=== PATIENT | male | born 1985 | race Caucasian/White ===

== ENCOUNTER 2017-10-07 14:41 | Emergency (ER) | payer OTHER ==
[2017-10-07] MEDS ORDERED: GLUCAGON 1 MG/ML VIAL IVP STA (15:07)
--- NOTE | 2017-10-07 15:22 | XR ---
EXAMINATION TYPE: XR chest 2V DATE OF EXAM: 10/07/2017 COMPARISON: NONE HISTORY: Piece of meat stuck in the patient's esophagus. Dysphagia TECHNIQUE: Frontal and lateral views of the chest are obtained. FINDINGS: There is no focal air space opacity, pleural effusion, or pneumothorax seen. The cardiac silhouette size is within normal limits. The osseous structures are intact. A radiopaque foreign luis dy is not identified. IMPRESSION: No acute cardiopulmonary process.
--- NOTE | 2017-10-07 16:04 | ED ---
General Adult HPI - General Chief complaint: ENT Stated complaint: Throat pain Time Seen by Provider: 10/07/17 14:53 Source: patient Mode of arrival: ambulatory Limitations: no limitations - History of Present Illness Initial comments: 32-year-old male patient presents to the emergency department today for evaluation of esophageal food obstruction. Patient states that he was eating pulled pork sandwich around 1 PM when he felt a piece get lodged in his esophagus. He states that he has attempted drinking fluids multiple times to help it pass but he has been unsuccessful. He states whenever he tries to drink he spits the liquid back up. Patient states that this has happened multiple times in the past. Patient states that occasionally he is able to relieve the blockage himself, and one incident he did have endoscopy in the emergency department. He denies any difficulty breathing or chest pain. He states that it does feel that it is lodged in his upper chest. Patient denies any recent rash, fever, chills, abdominal pain, nausea, vomiting, diarrhea, constipation, back pain, numbness, tingling, dizziness, weakness, hematuria, dysuria, urinary urgency, urinary frequency, headache, visual changes, or any other complaints. - Related Data Home Medications Medication Instructions Recorded Confirmed Fluticasone Nasal [place] [Flonase 1 - 2 spr EA NOSTRIL DAILY PRN 10/07/17 Nasal [place]] Allergies Allergy/AdvReac Type Severity Reaction Status Date / Time Sulfa (Sulfonamide Allergy Unknown Verified 10/07/17 15:23 Antibiotics) Review of Systems ROS Statement: Those systems with pertinent positive or pertinent negative responses have been documented in the HPI. ROS Other: All systems not noted in ROS Statement are negative. Past Medical History Past Medical History: No Reported History History of Any Multi-Drug Resistant Organisms: None Reported Past Surgical History: No Surgical Hx Reported Past Psychological History: No Psychological Hx Reported Smoking Status: Never smoker Past Alcohol Use History: Occasional Past Drug Use History: None Reported General Exam Limitations: no limitations General appearance: alert, in no apparent distress, other (This is a well- developed, well-nourished adult male patient in no acute distress. Vital signs upon presentation are temperature 98.3F, pulse 93, respirations 18, blood pressure 148/87, pulse ox 97% on room air.) Eye exam: Present: normal appearance, PERRL, EOMI. Absent: scleral icterus, conjunctival injection, periorbital swelling ENT exam: Present: normal exam, normal oropharynx, mucous membranes moist Neck exam: Present: normal inspection. Absent: tenderness, meningismus, lymphadenopathy Respiratory exam: Present: normal lung sounds bilaterally. Absent: respiratory distress, wheezes, rales, rhonchi, stridor Cardiovascular Exam: Present: regular rate, normal rhythm, normal heart sounds. Absent: systolic murmur, diastolic murmur, rubs, gallop, clicks GI/Abdominal exam: Present: soft, normal bowel sounds. Absent: distended, tenderness, guarding, rebound, rigid Neurological exam: Present: alert, oriented X3, CN II-XII intact Psychiatric exam: Present: normal affect, normal mood Skin exam: Present: warm, dry, intact, normal color. Absent: rash Course Vital Signs 10/07/17 10/07/17 14:43 16:21 Temperature 98.3 F Pulse Rate 93 Respiratory 18 Rate Blood Pressure 148/87 O2 Sat by Pulse 97 98 Oximetry - Reevaluation(s) Reevaluation #1: 10/07/17 16:04 We did attempt a glucagon challenge to pass the food bolus however is unsuccessful. Patient is still spitting up liquids and a repeat attempts to drink. My attending Dr. Borjas has been in to evaluate patient and we will be calling in GI specialist for further evaluation. Medical Decision Making - Medical Decision Making 32-year-old nail patient presented to the emergency department today for evaluation of possible esophageal obstruction due to food bolus. Physical examination was unremarkable. Patient was breathing without difficulty. We did attempt a glucagon challenge to remove the food bolus however was unsuccessful. Patient continued to spit up fluids when with any attempt at drinking. Dr. Woodall did come in and perform endoscopy on the patient. She reported that she removed a large food bolus. She also reported she found an esophageal stricture and esophageal polyp for which she did perform a biopsy. Patient will be discharged home at this time with instructions to follow-up with a GI specialist as soon as possible. Patient does live in [place] and will be following up with a GI specialist in his home town. He is instructed to call for the results of his biopsy in one week. He is instructed to return here immediately for any new, worsening, or concerning symptoms. He is instructed to follow up his primary care physician for further evaluation. He verbalizes understanding and agrees with this plan. - Radiology Data Radiology results: report reviewed, image reviewed Two-view x-ray of the chest shows there is no focal airspace opacity, pleural effusion, or pneumothorax seen. The cardiac silhouette size is within normal limits. The osseous structures are intact. Radiopaque foreign body is not identified. Impression by Dr. Singh shows no acute cardio pulmonary process. Disposition Clinical Impression: Esophageal obstruction due to food impaction, Esophageal stricture Disposition: HOME SELF-CARE Condition: Good Instructions: *Surgery [facility] - (Anesthesia) Endoscopy Discharge Instructions, Esophageal Foreign Body (ED) Additional Instructions: Follow-up with GI specialist for further evaluation. Return here immediately if you develop any new, worsening, or concerning symptoms. Referrals: Danyelle Woodall MD [STAFF PHYSICIAN] - (Follow up in 2 weeks. Call for appointment. ) Time of Disposition: 17:56
[2017-10-07] MEDS ORDERED: LIDOCAINE 2% SYG (PF) 100 MG/5 ML ONE (17:15)
[2017-10-07] MEDS ORDERED: PROPOFOL 10 MG/ML 20 ML VIAL IV ONE (17:15)
[2017-10-07] MEDS ORDERED: SODIUM CHLORIDE 0.9% 1,000 ML IV ONE (17:29)
[2017-10-07 18:25] VITALS: BP 122/73; PULSE 86; RESP 16; TEMP 98.4
--- NOTE | 2017-10-08 10:55 | PCN ---
PROCEDURE NOTE BRIEF HISTORY: Patient is a 32 -year-old pleasant white male came into the emergency room with acute food dysphagia. He was eating a piece of steak this afternoon and could not swallow any further. Came to the emergency room at 4 pm and is scheduled for an emergency upper endoscopy in the ER. PROCEDURE PERFORMED: EGD with foreign body retrieval and biopsy. SEDATION: IV sedation per Anesthesia. DESCRIPTION OF PROCEDURE: After informed consent was obtained from the patient, the procedure was done in the emergency room. IV conscious sedation was administered by anesthesia. Initially the Olympus GF 190 video endoscope was inserted into the mouth and esophagus intubated without difficulty. In the mid esophagus, there was a large piece of meat that was impacted. Using a snare, the piece of meat was retrieved without any difficulty out of the mouth. Following this, the scope was reintubated. The scope was passed and esophagus intubated and was advanced into the stomach and duodenum. The bulb and the second part of the duodenum appeared normal. The scope at this time was withdrawn into the stomach, adequately insufflated with air. Upon careful examination the mucosa of the antrum, body, cardia and fundus appeared normal. The scope was withdrawn into the esophagus. There was a small hiatal herniated noted. The GE junction was located at 38 cm from the incisors. Just distal to the GE junction there was a 1 cm polyp that was biopsied. There was a distal esophageal stricture identified with multiple superficial esophageal rings and erythematous mucosal folds, especially in the mid and distal esophagus suspicious for eosinophilic esophagitis and hence multiple biopsies were done from this area. The proximal cervical esophagus appeared normal. The patient tolerated the procedure well. IMPRESSION: 1. Acute food impaction status post removal as described above. 2. Multiple superficial esophageal rings with thickened folds, and distal esophageal stricture, status post multiple biopsies to rule out the eosinophilic esophagitis. 3. 1 cm GE junction polyp status post biopsy. 4. RECOMMENDATIONS: Findings of this examination were discussed with the patient as well as his family. At this time we will await the biopsy results. He will be discharged home on a soft diet. He was advised to start on Prilosec 20 mg twice daily before breakfast and dinner time and follow anti-reflux measures. He was advised to follow up in the office in 2-3 weeks. MMODL / IJN: [id number] /
== END 2017-10-07 18:30 | disposition home or self-care (01) ==
LOC: EC 14:41
DX: K22.2 Esophageal obstruction (principal); Z88.2 Allergy status to sulfonamides
CPT/HCPCS: 99283; 96374; 88305; 88342; 88341; 71020; 43239; 43247; J1610; J2001; J2704